=== PATIENT | female | born 1995 | race Caucasian/White ===

== ENCOUNTER 2017-05-25 13:04 | Outpatient (CLI) | payer OTHER, MEDICAID ==
--- NOTE | 2017-05-25 13:36 | Non Stress Test Report ---
Non Stress Test Datetime Report Generated by CPN: 05/25/2017 13:36 DEMOGRAPHIC Test Number: 1 EGA NST: 38.4 INDICATION Indication for Study: Decreased Movement; Ordered by Provider MONITORING Monitor Explained: Monitor Explained; Test Explained; Patient Verbalized Understanding Time on Monitor: 05/25/2017 13:15 Time off Monitor: 05/25/2017 13:35 NST Duration: 20 NST INTERVENTIONS NST Interventions: PO Hydration Physician Notified NST: J. Vo, CNM BABY A: [id number] BABY A Movement : Present Contraction Frequency : 0 FHR Baseline : 125 Accelerations : 15X15 Decelerations : None Variability : Moderate 6-25bpm NST Review: Meets Criteria for Reactive NST NST Review and Verified By : Zoe Esquivel RNC NST Results: Reactive NST REPORT Report Trigger: Send Report
== END 2017-05-25 13:38 | disposition home or self-care (01) ==
LOC: LC 13:04
PROVIDERS: ATTEND Obstetrics & Gynecology Gynecology
PROC: 4A1HXCZ Monitoring of Products of Conception, Cardiac Rate, External Approach (ICD-10-PCS; principal; 2017-05-25)
DX: O36.8130 Decreased fetal movements, third trimester, not applicable or unspecified (principal); Z3A.38 38 weeks gestation of pregnancy
CPT/HCPCS: 59025

== ENCOUNTER 2017-06-04 13:49 | Inpatient (IN) | payer OTHER, MEDICAID ==
[2017-06-15 20:52] LABS: ABSOLUTE BASOPHILS # (AUTO) 0.1 10^3/uL (0.0-0.2); ABSOLUTE EOSINOPHILS # (AUTO) 0.1 10^3/uL (0.0-0.6); ABSOLUTE LYMPHOCYTES (AUTO) 2.1 10^3/uL (0.5-4.7); ABSOLUTE MONOCYTES (AUTO) 0.9 10^3/uL (0.1-1.4); ABSOLUTE NEUT (AUTO) 7.6 10^3/uL (1.7-8.2); BASOPHILS % (AUTO) 0.5 % (0-2); EOSINOPHILS % (AUTO) 1.2 % (0-6); HEMATOCRIT 38.3 % (36.0-47.0); HEMOGLOBIN 13.1 g/dL (12.0-15.5); LYMPHOCYTES % (AUTO) 19.4 % (13-45); MEAN CORPUSCULAR HEMOGLOBIN 30.6 pg (27.0-33.4); MEAN CORPUSCULAR HGB CONC 34.2 g/dL (32.0-36.0); MEAN CORPUSCULAR VOLUME 89 fl (80-97); PLATELET COUNT 196 10^3/uL (150-450); RED BLOOD COUNT 4.28 10^6/uL (3.72-5.28); RED CELL DISTRIBUTION WIDTH 18.7 % (11.5-14.0); SEGMENTED NEUTROPHILS % (AUTO) 70.9 % (42-78); TOTAL CELLS COUNTED % (AUTO) 100 %; WHITE BLOOD COUNT 10.7 10^3/uL (4.0-10.5)
[2017-06-15] MEDS ORDERED: RINGERS SOLUTION,LACTATED 1,000 ML IV ONE (20:58)
[2017-06-15] MEDS ORDERED: DINOPROSTONE 10 MG VAGINAL INSERT.SR PV ONE (21:00)
[2017-06-15 21:03] LABS: APPEARANCE,URINE CLOUDY; BILIRUBIN,URINE NEGATIVE (NEGATIVE); COLOR,URINE YELLOW; GLUCOSE, URINE NEGATIVE (NEGATIVE); KETONES,URINE NEGATIVE (NEGATIVE); LEUKOCYTE ESTERASE,URINE LARGE (NEGATIVE); NITRITE,URINE NEGATIVE (NEGATIVE); PROTEIN,URINE NEGATIVE (NEGATIVE); URINE SPECIFIC GRAVITY 1.008; UROBILINOGEN,URINE NEGATIVE mg/dL (<2.0)
[2017-06-15 21:28] LABS: URINE AMPHETAMINES SCREEN NEGATIVE; URINE BARBITURATES SCREEN NEGATIVE; URINE BENZODIAZEPINES SCREEN NEGATIVE; URINE COCAINE SCREEN NEGATIVE; URINE MARIJUANA (THC) SCREEN NEGATIVE; URINE METHADONE SCREEN NEGATIVE; URINE PHENCYCLIDINE SCREEN NEGATIVE
[2017-06-15] MEDS ORDERED: DINOPROSTONE 10 MG VAGINAL INSERT.SR ONE (21:29)
[2017-06-15] MEDS ORDERED: ZOLPIDEM TARTRATE 5 MG TABLET ONE (23:35)
[2017-06-16] MEDS ORDERED: ZOLPIDEM TARTRATE 5 MG TABLET ONE (01:04)
[2017-06-16] MEDS ORDERED: PENICILLIN G-K 5 MILLION UNIT VIAL ONE ×2 (01:49→05:37)
[2017-06-16] MEDS ORDERED: PENICILLIN G POTASSIUM 5,000,000 UNIT in DEXTROSE 5%-WATER 100 ML IV ONE (01:50)
[2017-06-16] MEDS: RINGERS SOLUTION,LACTATED 1,000 ML IV PRN ×2 (02:34→05:52)
[2017-06-16] MEDS ORDERED: MISOPROSTOL 0.2 MG TABLET ONE (02:53)
[2017-06-16] MEDS ORDERED: EPHEDRINE SULFATE INJ 50 MG/1 ML AMPULE ONE (02:53)
[2017-06-16] MEDS ORDERED: FENTANYL CITRATE INJ/PF 100 MCG/2 ML AMPUL ONE (02:53)
[2017-06-16] MEDS ORDERED: FENTANYL/BUPIVACAINE/NS/PF 200 MCG/100 ML RTUINJ EPI ONE (02:53)
[2017-06-16] MEDS ORDERED: LIDOCAINE 1% INJ-PF (10 MG/ML) 30 ML SDV ONE (02:53)
[2017-06-16] MEDS ORDERED: BUPIVACAINE HCL 0.25 % INJ/PF (2.5 MG/1 ML) 30 ML VIAL ONE (02:54)
[2017-06-16] MEDS ORDERED: OXYTOCIN/NORMAL SALINE 20 UNIT/1,000 ML RTUINJ ONE (02:54)
[2017-06-16] MEDS ORDERED: PENICILLIN G POTASSIUM 2,500,000 UNIT in DEXTROSE 5%-WATER 50 ML IV SCH (05:50)
--- NOTE | 2017-06-16 07:09 | Admission Physical ---
Datetime Report Generated by CPN: 06/16/2017 07:09 CURRENT ADMISSION Chief Complaint: Scheduled Induction of Labor Indication for Induction: Post Dates Admit Impression : Term, Intrauterine ; Induction of Labor Admit Plan: Admit to Unit; Initiate Labor Induction Protocol ALLERGIES Medication Allergies: No Medication Allergies: No Known Allergies (06/15/2017) Latex: No Latex Allergies Food Allergies: none Environmental Allergies: none (Annotations: Data stored by CPN on behalf of user) OBSTETRICAL HISTORY EDC: 06/04/2017 00:00 : 1 Para: 0 Term: 0 : 0 SAB: 0 IAB: 0 Ectopic: 0 Livin Cesareans: 0 VBACs: 0 Multiple Births: 0 Gestational Diabetes: No Rh Sensitization: No Incompetent Cervix: No OLEGARIO: No Infertility: No ART Treatment: No Uterine Anomaly: No IUGR: No Hx Previous C/S: No Macrosomia: No Hx Loss/Stillborn: No PIH: No Hx : No Placenta Previa/Abruption: No Depression/PP Depression: No PTL/PROM: No Post Hemorrhage: No Current Procedures: Ultrasound; NST Obstetrical History Comments: G1- current SEE RECORDS Alcohol: No Marijuana : No Cocaine: No Other Illicit Drugs: No Cigarettes: Never Smoker. [id number] MEDICAL HISTORY Diabetes: No Blood Transfusion: No Pulmonary Disease (Asthma, TB): No Breast Disease: No Hypertension: No Director Of Physical Security Surgery: No Heart Disease: No Hosp/Surgery: No Autoimmune Disorder: No Anesthetic Complications: No Kidney Disease: No Abnormal Pap Smear: No Neuro/Epilepsy: No Psychiatric Disorders: No Other Medical Diseases: No Hepatitis/Liver Disease: No Significant Family History: No Varicosities/Phlebitis: No Trauma/Violence : No Thyroid Dysfunction: No INFECTIOUS HISTORY Gonorrhea: No Genital Herpes: Yes Chlamydia: No Tuberculosis: No Syphilis: No Hepatitis: No HIV/AIDS Exposure: No Rash or Viral Illness: No HPV: No Infectious History Comments: on valtrex PHYSICAL EXAM General: Normal HEENT: Normal Neurologic: Normal Thyroid: Normal Heart: Normal Lungs: Normal Breast: Normal Back: Normal Abdomen: Normal Genitourinary Exam: Normal Extremities: Normal DTRs: Normal Pelvic Type: Adequate Vital Signs: Reviewed VAGINAL EXAM Dilatation: 10 Effacement: 100 Station: 0 MEMBRANES Pooling: Positive Membranes: Ruptured Amniotic Fluid Color: Clear FETUS A EGA: 41.5 Monitoring: External US FHR- Baseline: 140 Variability: Moderate 6-25bpm Accelerations: 15X15 Decelerations: None FHR Category: Category I Estimated Weight (gm): 4000 Presentation: Vertex Admit Comment: AROM performed at 645. Sitting in [place] to facilitate descent PLANS FOR LABOR AND DELIVERY Labor and Delivery: None Pain Management: Natural Feeding Preference: Breast Benefit of Breast Feed Discussed: Yes Circumcision: N/A INFORMED CONSENT Signature: with User ID: [email or web address]
--- NOTE | 2017-06-16 11:27 | Warning Signs in Babies ---
VOD Warning Signs Datetime Report Generated by N: 06/16/2017 11:27 VOD#[id number] -Warning Signs in Babies: Viewed with Parent(s)/Family (06/16/2017 11:23:Margarita Slaughter RN)
[2017-06-16] MEDS ORDERED: BENZOCAINE/MENTHOL AEROSOL SPRAY 56 ML TOP PRN (11:57)
[2017-06-16] MEDS ORDERED: DIBUCAINE 1% OINTMENT 28 GM TP PRN (11:57)
[2017-06-16] MEDS ORDERED: DIPH/PERTUSS(ACELL)/TETANUS VAC/PF 0.5 ML SYR (>=10YO) IM PRN ×2 (11:57→13:30)
[2017-06-16] MEDS ORDERED: ZOLPIDEM TARTRATE 5 MG TABLET PO PRN (11:57)
[2017-06-16] MEDS ORDERED: OXYTOCIN/NORMAL SALINE 20 UNIT/1,000 ML RTUINJ IV PRN (11:57)
[2017-06-16] MEDS ORDERED: MEASLES,MUMPS&RUBELLA VACC/PF 0.5 ML VIAL SUBCUT PRN ×2 (11:57→14:00)
[2017-06-16] MEDS ORDERED: ACETAMINOPHEN WITH CODEINE #3 TABLET PO PRN ×2 (11:57)
[2017-06-16] MEDS: IBUPROFEN 800 MG TABLET PO SCH ×2 (13:20→21:15)
[2017-06-16] MEDS ORDERED: IBUPROFEN 800 MG TABLET ONE (13:20)
--- NOTE | 2017-06-16 13:44 | Delivery Summary ---
Del Sum A-C Datetime Report Generated by CPN: 06/16/2017 13:44 DELIVERY PERSONNEL DELIVERY PERSONNEL: [id number] Delivery Doctor:: Carlita Jackson CNM Nurse Osteopathy Doctor Certified:: Carlita Jackson CNM Labor and Delivery Nurse:: Margarita Slaughter RNdirect care specialist Nurse:: JASON Garcia Nursery Nurse:: Sari Jay RN Student Observers:: Gloria Kruse Molly Fox Bee Keeper/PRODUCTION WELDER: Tiffanie Arreola, COMPUTATIONAL CHEMIST Additional Personnel: : Franklin Davey RN MATERNAL INFORMATION Delivery Anesthesia: Epidural Medications After Delivery: Pitocin Bolus-Please Comment Meds After Delivery Comment: Pitocin 20 units in 1000 ml nss open for bolus Estimated Blood Loss (ml): 350 Maternal Complications: None Provider Comments: of viable female infant, head, shoulders, and body delivered without difficulty, infant with spontaneous cry and respirations, to maternal abdomen, cord clamped X2 after 2 min delay, infant cut free by pts support person, spontaneous delivery of placenta via cabrera mechanism, appears intact, 3 VC, vagina and perineum inspected no lacerations noted, hemostasis acheived with external fundal massage and IV pitocin, routine pp care. Mother and in stable condition. LABOR SUMMARY EDC: 06/04/2017 00:00 No. Babies in Womb: 1 Attempted: No Labor Anesthesia: Epidural LABOR INFORMATION Reason for Induction: Post Dates Onset of Labor: 06/16/2017 01:35 Complete Dilatation: 06/16/2017 06:09 Cervical Ripening Agents: Cervidil Oxytocin: N/A Group B Beta Strep: Positive Antibiotics # of Doses: 2 Antibiotics Time of Last Dose: 0551 Name of Antibiotic Given: Penicillin Steroids Given: None Reason Steroids Not Administered: Not Applicable MEMBRANES Membranes Rupture Method: Artificial Rupture of Membranes: 06/16/2017 06:37 Length of Rupture (hr): 4.50 Amniotic Fluid Color: Clear Amniotic Fluid Amount: Moderate Amniotic Fluid Odor: Normal STAGES OF LABOR Stage 1 hr: 4 Stage 1 min: 34 Stage 2 hr: 4 Stage 2 min: 58 Stage 3 hr: 0 Stage 3 min: 4 Total Time in Labor hr: 9 Total Time in Labor min: 36 VAGINAL DELIVERY Episiotomy: None Laceration #1: None Laceration Extension #1: N/A Laceration Repair: Not Applicable Sponge Count Correct: N/A CSECTION DELIVERY Primary Indication: N/A Secondary Indication: N/A CSection Incidence: N/A Labor: N/A Elective: N/A CSection Incision: N/A BABY A INFORMATION Delivery Date/Time: 06/16/2017 11:07 Method of Delivery: Vaginal Born in Route : No : N/A Forceps: N/A Vacuum Extraction: N/A Shoulder Dystocia : No PRESENTATION/POSITION BABY A Presentation: Cephalic Cephalic Presentation: Vertex Vertex Position: Right Occipital Transverse Breech Presentation: N/A PLACENTA INFORMATION BABY A Placenta Delivery Time : 06/16/2017 11:11 Placenta Method of Delivery: Spontaneous Placenta Status: Delivered SCORES BABY A Heart Rate 1 min: >100 bpm Resp Effort 1 min: Good Cry Reflex Irritability 1 min: Cough or Sneeze or Pulls Away Muscle Tone 1 min: Some Flexion of Extremities Color 1 min: Blue/Pale Resuscitation Effort 1 min: Tactile Stimulation SCORE 1 MIN: 7 Heart Rate 5 min: >100 bpm Resp Effort 5 min: Good Cry Reflex Irritability 5 min: Cough or Sneeze or Pulls Away Muscle Tone 5 min: Active Motion Color 5 min: Body Trimble, Extremities Blue Resuscitation Effort 5 min: N/A SCORE 5 MIN: 9 Resuscitation Effort 10 min: N/A INFORMATION BABY A Gestational Age at Delivery: 41.5 Gestational Status: Late Term- 41- 41.6 Weeks Infant Outcome : Liveborn Condition : Stable Sex: Female IDENTIFICATION BABY A Infant Verification Date/Time: 06/16/2017 11:36 ID Band Number: [id number] Mother's Name Verified: Yes Infant RN Verifying Infant: Magaly Camp RN Additional Verifying Personnel: [employer] US WEIGHT/LENGTH BABY A Infant Birthweight (gm): 3820 Infant Weight (lb): 8 Infant Weight (oz): 7 Length (in): 21.25 Length (cm): 53.98 CORD INFORMATION BABY A No. Cord Vessels: 3 Nuchal Cord : N/A Nuchal Cord- Other: body cord Cord Blood Taken: Yes-For Eval (Mom's Blood Type - or O+) Suction: None ASSESSMENT BABY A Infant Complications: None Physical Findings at Delivery: Within Normal Limits Infant Respirations: Appears Normal Skin to Skin: Yes Skin to Skin Time (min): 45 Dealership Manager/ALS Called : No Infant Care By: Yari Jay RN Transferred To: Remains with Mother BABY B INFORMATION : N/A SIGNATURES Assignment: Nolvia Bobo MD Signature: with User ID: Misha : with User ID: [email or web address]
[2017-06-16] MEDS: FERROUS SULFATE 325 MG TABLET PO SCH (18:15)
[2017-06-16] MEDS: DOCUSATE SODIUM 100 MG CAPSULE PO SCH (18:16)
[2017-06-17] MEDS: IBUPROFEN 800 MG TABLET PO SCH ×3 (05:53→21:25)
[2017-06-17 07:15] LABS: HEMATOCRIT 33.1 % (36.0-47.0); HEMOGLOBIN 11.1 g/dL (12.0-15.5); MEAN CORPUSCULAR HEMOGLOBIN 30.4 pg (27.0-33.4); MEAN CORPUSCULAR HGB CONC 33.5 g/dL (32.0-36.0); MEAN CORPUSCULAR VOLUME 91 fl (80-97); PLATELET COUNT 156 10^3/uL (150-450); RED BLOOD COUNT 3.66 10^6/uL (3.72-5.28); RED CELL DISTRIBUTION WIDTH 18.7 % (11.5-14.0)
--- NOTE | 2017-06-17 09:04 | PDOC PROGRESS REPORT ---
Subjective-OB Progress Note for:: 06/17/17 Subjective: Doing well, no c/o, , voiding, eating well, ambulating Physical Exam (OB) Vital Signs: Temp Pulse Resp BP Pulse Ox 98.2 F 66 20 102/54 L 97 06/17/17 08:06 06/17/17 08:06 06/17/17 08:06 06/17/17 08:06 06/17/17 08:06 Intake & Output 06/16/17 06/17/17 06/18/17 06:59 06:59 06:59 Weight 77.1 kg - Lochia Lochia Amount: Scant < 10 ml Lochia Color: Rubra/Red - Abdomen Description: Soft, Flat Hernia Present: No Fundal Description: Firm, Midline Fundal Height: u/u - u/2 Objective-Diagnostic Laboratory: 06/17/17 07:05 06/17/17 07:05 WBC 15.0 H RBC 3.66 L Hgb 11.1 L Hct 33.1 L MCV 91 MCH 30.4 MCHC 33.5 RDW 18.7 H Plt Count 156 Assessment and Plan(PN) - Assessment and Plan (1) Vaginal delivery Is this a current diagnosis for this admission?: Yes (2) Post term at 41 weeks gestation Is this a current diagnosis for this admission?: Yes - Time Spent with Patient Time with patient: Less than 15 minutes Medications reviewed and adjusted accordingly: Yes - Disposition Anticipated Discharge: Home Within: within 48 hours
[2017-06-17] MEDS: PRENATAL VITAMIN W DHA CAPSULE PO SCH (10:25)
[2017-06-17] MEDS: FERROUS SULFATE 325 MG TABLET PO SCH ×2 (10:25→18:21)
[2017-06-17] MEDS: DOCUSATE SODIUM 100 MG CAPSULE PO SCH ×2 (10:25→18:21)
[2017-06-17] MEDS: SENNOSIDES/DOCUSATE 8.6-50 MG 1 EACH TABLET PO SCH (10:25)
[2017-06-18] MEDS: IBUPROFEN 800 MG TABLET PO SCH ×2 (05:46→15:16)
[2017-06-18 08:12] VITALS: BP 112/54
[2017-06-18] MEDS: FERROUS SULFATE 325 MG TABLET PO SCH (10:18)
[2017-06-18] MEDS: DOCUSATE SODIUM 100 MG CAPSULE PO SCH (10:18)
[2017-06-18] MEDS: SENNOSIDES/DOCUSATE 8.6-50 MG 1 EACH TABLET PO SCH (10:18)
[2017-06-18] MEDS: PRENATAL VITAMIN W DHA CAPSULE PO SCH (10:18)
--- NOTE | 2017-06-18 11:01 | PDOC DISCHARGE SUMMARY ---
Final Diagnosis Discharge Date: 06/18/17 - Final Diagnosis (1) Post term at 41 weeks gestation Is this a current diagnosis for this admission?: Yes (2) Vaginal delivery Is this a current diagnosis for this admission?: Yes Discharge Data - Discharge Medication Home Medications: Ferrous Sulfate [Iron] 1 tab PO DAILY 05/25/17 Pnv,Calcium 72/Iron/Folic Acid [ Plus Tablet] 1 tab PO DAILY 05/25/17 Valacyclovir HCl [Valtrex 500 mg Tablet] 1 tab PO BID 05/25/17 Intrapartum Procedure(s): Spontaneous Vaginal Delivery - Diagnosis Test Laboratory: Temp Pulse Resp BP Pulse Ox 98.1 F 64 14 112/54 L 98 06/18/17 07:00 06/18/17 07:00 06/18/17 07:00 06/18/17 07:00 06/18/17 07:00 06/15/17 06/15/17 06/17/17 20:34 20:42 07:05 RBC 4.28 3.66 L Hgb 13.1 11.1 L Hct 38.3 33.1 L Urine Opiates Screen NEGATIVE - Discharge information/Instructions Discharge Activity: Activity As Tolerated, Pelvic Rest, No tub bath Discharge Diet: Regular Disposition: HOME, SELF-CARE Follow up with: [facility] in: 4
== END 2017-06-18 15:36 | disposition home or self-care (01) | DRG 774 ==
LOC: LR 06-15 20:14 → 2S 06-16 14:04
PROVIDERS: ADMIT Obstetrics & Gynecology; ATTEND Obstetrics & Gynecology
PROC: 10E0XZZ Delivery of Products of Conception, External Approach (ICD-10-PCS; principal; 2017-06-16)
PROC: 4A1HXCZ Monitoring of Products of Conception, Cardiac Rate, External Approach (ICD-10-PCS; 2017-06-16)
DX: O48.0 Post-term pregnancy (principal); O98.52 Other viral diseases complicating childbirth; O69.81X0 Labor and delivery complicated by cord around neck, without compression, not applicable or unspecified; O99.824 Streptococcus B carrier state complicating childbirth; Z3A.41 41 weeks gestation of pregnancy; Z79.899 Other long term (current) drug therapy; Z37.0 Single live birth
CPT/HCPCS: 36415; 80307; 81005; 85025; 85027; 86592; 86850; 86900; 86901; 94760; J2540; J2590; J3010; J3490